=== PATIENT | male | born 1975 | race Hispanic/Latino ===

== ENCOUNTER 2019-01-03 15:33 | Inpatient (IN) | payer BC ==
[2019-01-03] MEDS ORDERED: Sodium Chloride 0.9% 1,000 ML IV STA (15:55)
--- NOTE | 2019-01-03 16:02 | ED PDOC ---
HPI: SOB/CHF/COPD Time Seen by Provider: 01/03/19 15:51 Chief Complaint (Nursing): Dizziness/Lightheaded Chief Complaint (Provider): SOB on exertion, Lightheaded, Weakness History Per: Patient History/Exam Limitations: no limitations Onset/Duration Of Symptoms: Days (3-4) Current Symptoms Are (Timing): Still Present Additional Complaint(s): 43 year old male presents to the ED for evaluation of shortness of breath on exertion for the past 3-4 days associated with light headedness, dizziness, and generalized weakness. Patient states that today, his colleague mentioned to him that he looks paler than usual, prompting his visit. He additionally notes that a couple days ago he noticed a little blood in his stool. Otherwise, denies chest pain, abdominal pain, nausea, vomiting, diarrhea, urinary symptoms, hematuria, leg pain, and recent long distance travel. 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 note) Past Medical History Reviewed: Historical Data, Nursing Documentation, Vital Signs Vital Signs: Last Vital Signs Temp 98.5 F 01/03/19 15:42 Pulse 115 H 01/03/19 15:42 Resp 19 01/03/19 15:42 BP Pulse Ox 100 01/03/19 15:42 - Medical History PMH: No Chronic Diseases - Surgical History Surgical History: No Surg Hx - Family History Family History: States: Unknown Family Hx - Social History Current smoker - smoking cessation education provided: No Alcohol: None Drugs: Denies - Home Medications Home Medications: Ambulatory Orders Medication Instructions Recorded No Known Home Med 01/03/19 - Allergies Allergies/Adverse Reactions: Allergies Allergy/AdvReac Type Severity Reaction Status Date / Time Penicillins AdvReac RASH Verified 01/03/19 15:40 Review of Systems ROS Statement: Except As Marked, All Systems Reviewed And Found Negative Constitutional: Positive for: Weakness (generalized) Cardiovascular: Positive for: Light Headedness. Negative for: Chest Pain Respiratory: Positive for: SOB with Exertion Gastrointestinal: Negative for: Nausea, Vomiting, Abdominal Pain, Diarrhea Genitourinary Male: Negative for: Dysuria, Frequency, Incontinence, Hematuria Musculoskeletal: Negative for: Leg Pain Skin: Positive for: Other (more pale than usual) Neurological: Positive for: Dizziness Physical Exam - Reviewed Nursing Documentation Reviewed: Yes Vital Signs Reviewed: Yes - Physical Exam Appears: Positive for: No Acute Distress Head Exam: Positive for: ATRAUMATIC, NORMAL INSPECTION, NORMOCEPHALIC Skin: Positive for: Warm, Dry, Pallor Eye Exam: Positive for: Normal appearance, EOMI, PERRL ENT: Positive for: Normal ENT Inspection Neck: Positive for: Normal, Painless ROM, Supple Cardiovascular/Chest: Positive for: Regular Rate, Rhythm Respiratory: Positive for: Normal Breath Sounds. Negative for: Respiratory Distress Gastrointestinal/Abdominal: Positive for: Normal Exam, Soft. Negative for: Tenderness Back: Positive for: Normal Inspection Rectal: Positive for: Rectal Tone Is: (normal, intact), Black Stool. Negative for: Other (gross blood) Extremity: Positive for: Normal ROM (all extremities). 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 Negative for: Motor/Sensory Deficits, Facial Droop Comments: Rectal exam attempted with SHEKHAR Cohen - Laboratory Results Result Diagrams: 01/03/19 15:58 01/03/19 15:58 Lab Results: 5.8hg - ECG ECG: Positive for: Interpreted By Me, Viewed By Me ECG Rhythm: Positive for: Normal QRS, Normal ST Segment, Sinus Rhythm O2 Sat by Pulse Oximetry: 100 (RA) Pulse Ox Interpretation: Normal - Progress ED Course And Treament: 1545: Stable. Continue fluids. Pending blood work. 1623: Stable. AAOx3. Pain free. Spoke with Dr. Loja. Will admit. - Critical Care Total Time (In Min): 30 Documented Critical Care: Time excludes all time spent performint seperately billable procedures Medical Decision Making Medical Decision Making: Time: 1557 Initial Impression: weakness, shortness of breath, pallor Initial Plan: --Abo/Rho --Type and screen --CT head without contrast --EKG --CMP --Trop I --CBC with differential --PT / PTT --Normal saline IV --Protonix 40mg IVP --Occult blood, stool --Reevaluation Scribe Attestation: Documented by Alexandrea Mireles, acting as a scribe for Parviz Elias MD. Provider Scribe Attestation: All medical record entries made by the Scribe were at my direction and personally dictated by me. I have reviewed the chart and agree that the record accurately reflects my personal performance of the history, physical exam, medical decision making, and the department course for this patient. I have also personally directed, reviewed, and agree with the discharge instructions and disposition. Disposition - Clinical Impression Clinical Impression: Anemia - Patient ED Disposition Is Patient to be Admitted: Yes Counseled Patient/Family Regarding: Studies Performed, Diagnosis - Disposition Disposition Time: 16:25 Condition: FAIR - Pt Status Changed To: Hospital Disposition Of: Inpatient - Admit Certification Admit to Inpatient:: After my assessment, the patient will require hospitalization for at least two midnights. This is because of the severity of symptoms shown, intensity of services needed, and/or the medical risk in this patient being treated as an outpatient. - POA Present On Arrival: None
[2019-01-03 16:05] LABS: BASO % 0.6 % (0.0-2.0); EOS # 0.1 K/uL (0.0-0.7); EOS % 1.2 % (0.0-4.0); LYMPH # 0.9 K/uL (1.0-4.3); LYMPH % 17.3 % (20.0-40.0); MEAN CELL VOLUME 85.7 fl (80.0-94.0); MEAN CORPUSCULAR HEMOGLOBIN 28.9 pg (27.0-31.0); MEAN CORPUSCULAR HGB CONC 33.7 g/dL (33.0-37.0); MEAN PLATELET VOLUME 7.5 fl (7.2-11.7); MONO # 0.3 K/uL (0.0-0.8); NEUT % 75.9 % (50.0-75.0); NRBC % 0.2 % (0.0-0.0); RBC 2.01 Mil/uL (4.40-5.90); RED CELL DISTRIBUTION WIDTH 13.6 % (11.5-14.5); WHITE BLOOD COUNT 5.3 K/uL (4.8-10.8)
[2019-01-03 16:11] LABS: PROTHROMBIN TIME 10.8 Seconds (9.8-13.1)
[2019-01-03 16:12] LABS: HEMOGLOBIN 5.8 g/dL (12.0-18.0)
[2019-01-03 16:13] LABS: PARTIAL THROMBOPLASTIN TIME 27.8 Seconds (25.6-37.1)
[2019-01-03 16:17] LABS: ALB/GLOB RATIO 1.3 (1.0-2.1); ALBUMIN 3.8 g/dL (3.5-5.0); ALT/SGPT 29 U/L (21-72); AST/SGOT 31 U/L (17-59); BLOOD UREA NITROGEN 22 mg/dl (9-20); CALCIUM 8.7 mg/dL (8.4-10.2); GFR NON-AFRICAN AMERICAN > 60
[2019-01-03] MEDS ORDERED: Pantoprazole 40 MG in Sodium Chloride 0.9% 100 ML IVPB SCH (16:30)
--- NOTE | 2019-01-03 17:00 | CP.PCM.HP ---
<Shila Sauceda - Last Filed: 01/03/19 17:12> History of Present Illness - History of Present Illness History of Present Illness: 43-year-old male with no PMH presented to [facility] ED for weakness, headache, dizziness and shortness of breath for 3 days duration. He has recently noticed very black stools but denies joshua blood. Colleagues had commented on his pallor skin but he has not noticed any change. Denies syncope, vomiting, medication and alcohol use, dysuria, hematuria, nausea, change in vision, chest pain, new-onset edema, change in weight, easy bleeding, and recent illness and travel. 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 absent: Weight Loss - EENT Eyes: absent: Change in Vision - Cardiovascular Cardiovascular: absent: Chest Pain - Respiratory Respiratory: As Per HPI - Gastrointestinal Gastrointestinal: As Per HPI - Genitourinary Genitourinary: absent: Dysuria, Hematuria - Neurological Neurological: absent: Syncope - Hematologic/Lymphatic Hematologic: absent: Easy Bleeding, Easy Bruising Past Patient History - Infectious Disease Hx of Infectious Diseases: None - Past Social History Alcohol: None Drugs: Denies - PSYCHIATRIC Hx Substance Use: No Meds Allergies/Adverse Reactions: Allergies Allergy/AdvReac Type Severity Reaction Status Date / Time Penicillins AdvReac RASH Verified 01/03/19 15:40 Physical Exam - Constitutional Appears: Non-toxic, No Acute Distress - Head Exam Head Exam: NORMAL INSPECTION - ENT Exam ENT Exam: Mucous Membranes Dry - Respiratory Exam Respiratory Exam: Clear to Auscultation Bilateral, NORMAL BREATHING PATTERN. absent: Chest Wall Tenderness, Respiratory Distress - Cardiovascular Exam Cardiovascular Exam: Tachycardia (HR 115) - GI/Abdominal Exam GI & Abdominal Exam: Normal Bowel Sounds, Soft. absent: Distended, Guarding, Tenderness - Extremities Exam Extremities exam: Negative for: pedal edema - Neurological Exam Neurological exam: Alert, Normal Gait, Oriented x3 - Psychiatric Exam Psychiatric exam: Normal Affect, Normal Mood - Skin Skin Exam: Dry, Pallor, Warm Results - Vital Signs Recent Vital Signs: Last Vital Signs Temp 98.5 F 01/03/19 15:42 Pulse 115 H 01/03/19 15:42 Resp 19 01/03/19 15:42 BP Pulse Ox 100 01/03/19 16:28 - Labs Result Diagrams: 01/03/19 15:58 01/03/19 15:58 Labs: Laboratory Results - last 24 hr 01/03/19 01/03/19 01/03/19 15:58 15:58 15:58 WBC 5.3 RBC 2.01 L Hgb 5.8 L* Hct 17.3 L MCV 85.7 MCH 28.9 MCHC 33.7 RDW 13.6 Plt Count 207 MPV 7.5 Neut % (Auto) 75.9 H Lymph % (Auto) 17.3 L Sargent % (Auto) 5.0 Eos % (Auto) 1.2 Baso % (Auto) 0.6 Neut # (Auto) 4.0 Lymph # (Auto) 0.9 L Sargent # (Auto) 0.3 Eos # (Auto) 0.1 Baso # (Auto) 0.0 PT 10.8 INR 1.0 APTT 27.8 Sodium 137 Potassium 4.1 Chloride 102 Carbon Dioxide 26 Anion Gap 13 BUN 22 H Creatinine 1.2 Est GFR ( Amer) > 60 Est GFR (Non-Af Amer) > 60 Random Glucose 108 Calcium 8.7 Total Bilirubin 0.6 AST 31 ALT 29 Alkaline Phosphatase 54 Troponin I < 0.0120 Total Protein 6.7 Albumin 3.8 Globulin 2.9 Albumin/Globulin Ratio 1.3 Stool Occult Blood 01/03/19 16:00 WBC RBC Hgb Hct MCV MCH MCHC RDW Plt Count MPV Neut % (Auto) Lymph % (Auto) Sargent % (Auto) Eos % (Auto) Baso % (Auto) Neut # (Auto) Lymph # (Auto) Sargent # (Auto) Eos # (Auto) Baso # (Auto) PT INR APTT Sodium Potassium Chloride Carbon Dioxide Anion Gap BUN Creatinine Est GFR ( Amer) Est GFR (Non-Af Amer) Random Glucose Calcium Total Bilirubin AST ALT Alkaline Phosphatase Troponin I Total Protein Albumin Globulin Albumin/Globulin Ratio Stool Occult Blood Positive H Assessment & Plan - Assessment and Plan (Free Text) Assessment: 43-year-old male with no PMH presented to [facility] ED for weakness, headache, dizziness and shortness of breath for 3 days duration admitted for anemia (H/H 5 .8/17.3). Plan: Anemia due to acute blood loss -H/H 5.8/17.3 -2 PRBC ordered -Admit to tele -BP 108/76, HR 115, monitor vitals -Repeat CBC post-transfusion GI bleed -Stool occult pos in ED -GI consulted, input and recs appreciated -Protonix 40mg Q12 -s/p 1L NS bolus ED DVT Prophylaxis -SCD <Ernesto Loja D - Last Filed: 01/04/19 11:43> Results - Vital Signs Recent Vital Signs: Last Vital Signs Temp 98.3 F 01/04/19 08:01 Pulse 81 01/04/19 08:01 Resp 18 01/04/19 08:01 BP 107/67 01/04/19 08:01 Pulse Ox 100 01/04/19 08:01 - Labs Result Diagrams: 01/04/19 05:25 01/04/19 05:25 Labs: Laboratory Results - last 24 hr 01/03/19 01/03/19 01/03/19 15:58 15:58 15:58 WBC 5.3 RBC 2.01 L Hgb 5.8 L* Hct 17.3 L MCV 85.7 MCH 28.9 MCHC 33.7 RDW 13.6 Plt Count 207 MPV 7.5 Neut % (Auto) 75.9 H Lymph % (Auto) 17.3 L Sargent % (Auto) 5.0 Eos % (Auto) 1.2 Baso % (Auto) 0.6 Neut # (Auto) 4.0 Lymph # (Auto) 0.9 L Sargent # (Auto) 0.3 Eos # (Auto) 0.1 Baso # (Auto) 0.0 PT 10.8 INR 1.0 APTT 27.8 Sodium 137 Potassium 4.1 Chloride 102 Carbon Dioxide 26 Anion Gap 13 BUN 22 H Creatinine 1.2 Est GFR ( Amer) > 60 Est GFR (Non-Af Amer) > 60 Random Glucose 108 Calcium 8.7 Total Bilirubin 0.6 AST 31 ALT 29 Alkaline Phosphatase 54 Troponin I < 0.0120 Total Protein 6.7 Albumin 3.8 Globulin 2.9 Albumin/Globulin Ratio 1.3 Stool Occult Blood Blood Type Blood Type Confirm Antibody Screen Crossmatch BBK History Checked 01/03/19 01/03/19 01/03/19 16:00 16:45 17:24 WBC RBC Hgb Hct MCV MCH MCHC RDW Plt Count MPV Neut % (Auto) Lymph % (Auto) Sargent % (Auto) Eos % (Auto) Baso % (Auto) Neut # (Auto) Lymph # (Auto) Sargent # (Auto) Eos # (Auto) Baso # (Auto) PT INR APTT Sodium Potassium Chloride Carbon Dioxide Anion Gap BUN Creatinine Est GFR ( Amer) Est GFR (Non-Af Amer) Random Glucose Calcium Total Bilirubin AST ALT Alkaline Phosphatase Troponin I Total Protein Albumin Globulin Albumin/Globulin Ratio Stool Occult Blood Positive H Blood Type O POSITIVE Blood Type Confirm O POSITIVE Antibody Screen Negative Crossmatch See Detail BBK History Checked No verified bt 01/04/19 01/04/19 05:25 05:25 WBC 4.4 L RBC 2.26 L Hgb 6.5 L* Hct 19.2 L MCV 85.3 MCH 28.7 MCHC 33.7 RDW 13.9 Plt Count 164 MPV 7.8 Neut % (Auto) 42.9 L Lymph % (Auto) 45.5 H Sargent % (Auto) 6.2 Eos % (Auto) 4.9 H Baso % (Auto) 0.5 Neut # (Auto) 1.9 Lymph # (Auto) 2.0 Sargent # (Auto) 0.3 Eos # (Auto) 0.2 Baso # (Auto) 0.0 PT INR APTT Sodium 139 Potassium 4.7 Chloride 107 Carbon Dioxide 28 Anion Gap 9 L BUN 16 Creatinine 1.1 Est GFR ( Amer) > 60 Est GFR (Non-Af Amer) > 60 Random Glucose 89 Calcium 8.6 Total Bilirubin AST ALT Alkaline Phosphatase Troponin I Total Protein Albumin Globulin Albumin/Globulin Ratio Stool Occult Blood Blood Type Blood Type Confirm Antibody Screen Crossmatch BBK History Checked Attending/Attestation - Attestation I have personally seen and examined this patient.: Yes I have fully participated in the care of the patient.: Yes I have reviewed all pertinent clinical information: Yes Notes (Text): 01/04/19 11:42 Patient seen and examined with resident. Case discussed and agreed with assessment and plan of management
[2019-01-03] MEDS: Pantoprazole 40 MG in Sodium Chloride 0.9% 100 ML IVPB SCH (21:40)
[2019-01-04] MEDS ORDERED: Influenza Vaccine 60 mcg/0.5 mL SYR (4YR UP) IM ONE (06:00)
[2019-01-04 06:05] LABS: BASO % 0.5 % (0.0-2.0); EOS # 0.2 K/uL (0.0-0.7); EOS % 4.9 % (0.0-4.0); LYMPH % 45.5 % (20.0-40.0); MEAN CELL VOLUME 85.3 fl (80.0-94.0); MEAN CORPUSCULAR HEMOGLOBIN 28.7 pg (27.0-31.0); MEAN CORPUSCULAR HGB CONC 33.7 g/dL (33.0-37.0); MEAN PLATELET VOLUME 7.8 fl (7.2-11.7); MONO # 0.3 K/uL (0.0-0.8); MONO % 6.2 % (0.0-10.0); NEUT # 1.9 K/uL (1.8-7.0); NEUT % 42.9 % (50.0-75.0); NRBC % 0.1 % (0.0-0.0); RBC 2.26 Mil/uL (4.40-5.90); RED CELL DISTRIBUTION WIDTH 13.9 % (11.5-14.5); WHITE BLOOD COUNT 4.4 K/uL (4.8-10.8)
[2019-01-04 06:22] LABS: BLOOD UREA NITROGEN 16 mg/dl (9-20); CALCIUM 8.6 mg/dL (8.4-10.2); GFR NON-AFRICAN AMERICAN > 60
[2019-01-04 06:48] LABS: HEMOGLOBIN 6.5 g/dL (12.0-18.0)
--- NOTE | 2019-01-04 09:18 | CARD ---
APPROVED REPORT Date of service: 01/03/2019 EKG Measurement Heart [id number] <Conclusion> Normal sinus rhythm Normal ECG
[2019-01-04] MEDS: Pantoprazole 40 MG in Sodium Chloride 0.9% 100 ML IVPB SCH ×2 (11:37→21:45)
--- NOTE | 2019-01-04 12:13 | CP.PCM.PN ---
<Shila Sauceda - Last Filed: 01/04/19 12:23> Subjective - Date & Time of Evaluation Date of Evaluation: 01/04/19 Time of Evaluation: 12:13 - Subjective Subjective: Patient seen and examined bedside. No acute events overnight and no new complaints besides a minor headache and hunger - has not ambulated much so unable to assess if his SOB has improved. Denies syncope, change in vision, palpitations, hematuria, nausea and vomiting. Objective - Vital Signs/Intake and Output Vital Signs (last 24 hours): Temp Pulse Resp BP Pulse Ox 98.1 F 75 18 111/70 96 01/04/19 12:03 01/04/19 12:03 01/04/19 12:03 01/04/19 12:03 01/04/19 12:03 Intake and Output: 01/04/19 01/04/19 06:59 18:59 Intake Total 652 Balance 652 - Medications Medications: Current Medications Pantoprazole Sodium 40 mg/ (Sodium Chloride) 100 mls @ 20 mls/hr IVPB Q12 ASHTYN Last Admin: 01/04/19 11:37 Dose: 20 mls/hr Iron Sucrose 100 mg/ Sodium (Chloride) 105 mls @ 105 mls/hr IVPB DAILY ASHTYN Last Admin: 01/04/19 10:57 Dose: 105 mls/hr - Labs Labs: 01/04/19 05:25 01/04/19 05:25 PT 10.8 Seconds (9.8-13.1) 01/03/19 15:58 INR 1.0 01/03/19 15:58 APTT 27.8 Seconds (25.6-37.1) 01/03/19 15:58 - Constitutional Appears: Non-toxic, No Acute Distress - Head Exam Head Exam: NORMAL INSPECTION - ENT Exam ENT Exam: Mucous Membranes Dry - Respiratory Exam Respiratory Exam: NORMAL BREATHING PATTERN - Cardiovascular Exam Cardiovascular Exam: REGULAR RHYTHM, +S1, +S2 - GI/Abdominal Exam GI & Abdominal Exam: Soft. absent: Tenderness - Neurological Exam Neurological Exam: Alert, Awake, Oriented x3 - Skin Skin Exam: Pallor Assessment and Plan - Assessment and Plan (Free Text) Assessment: 43-year-old male with no PMH presented to [facility] ED for weakness, headache, dizzin ess and shortness of breath for 3 days duration admitted for anemia (H/H 5.8/17.3 on admission). Plan: Anemia due to acute blood loss -Vitally stable -6.5/19.2 s/p 2 PRBC (Admission H/H 5.8/17.3) -1 PRBC transfusion today -Venofer 100mg daily -Repeat CBC post-transfusion GI bleed -Stool occult pos in ED -GI consulted, input and recs appreciated - plan for scope today as per Dr Meyer -Protonix 40mg Q12 -IVF: NS DVT Prophylaxis -SCD <Ernesto Loja D - Last Filed: 01/04/19 15:57> Objective - Vital Signs/Intake and Output Vital Signs (last 24 hours): Temp Pulse Resp BP Pulse Ox 98.6 F 72 18 100/57 L 96 01/04/19 13:58 01/04/19 13:58 01/04/19 13:58 01/04/19 13:58 01/04/19 12:03 Intake and Output: 01/04/19 01/04/19 06:59 18:59 Intake Total 652 0 Balance 652 0 - Medications Medications: Current Medications Pantoprazole Sodium 40 mg/ (Sodium Chloride) 100 mls @ 20 mls/hr IVPB Q12 ASHTYN Last Admin: 01/04/19 11:37 Dose: 20 mls/hr Iron Sucrose 100 mg/ Sodium (Chloride) 105 mls @ 105 mls/hr IVPB DAILY [facility] Last Admin: 01/04/19 10:57 Dose: 105 mls/hr - Labs Labs: 01/04/19 05:25 01/04/19 05:25 PT 10.8 Seconds (9.8-13.1) 01/03/19 15:58 INR 1.0 01/03/19 15:58 APTT 27.8 Seconds (25.6-37.1) 01/03/19 15:58 Attending/Attestation - Attestation I have personally seen and examined this patient.: Yes I have fully participated in the care of the patient.: Yes I have reviewed all pertinent clinical information, including history, physical exam and plan: Yes Notes (Text): 01/04/19 15:45 Patient seen and examined with resident. Case discussed and agreed with assessment and plan. Waiting for endoscopy/colonoscopy today to rule out presence of GI bleed.
[2019-01-05 05:25] LABS: MEAN CELL VOLUME 85.3 fl (80.0-94.0); MEAN CORPUSCULAR HEMOGLOBIN 28.8 pg (27.0-31.0); MEAN CORPUSCULAR HGB CONC 33.8 g/dL (33.0-37.0); RBC 3.14 Mil/uL (4.40-5.90); RED CELL DISTRIBUTION WIDTH 13.7 % (11.5-14.5); WHITE BLOOD COUNT 4.9 K/uL (4.8-10.8)
[2019-01-05 05:41] LABS: ALB/GLOB RATIO 1.3 (1.0-2.1); ALBUMIN 3.5 g/dL (3.5-5.0); ALT/SGPT 24 U/L (21-72); AST/SGOT 32 U/L (17-59); BLOOD UREA NITROGEN 13 mg/dl (9-20); CALCIUM 8.9 mg/dL (8.4-10.2); GFR NON-AFRICAN AMERICAN > 60
[2019-01-05 05:53] LABS: HEMOGLOBIN 9.1 g/dL (12.0-18.0)
[2019-01-05] MEDS ORDERED: Lactated Ringer's 500 ML IV ONE (08:02)
[2019-01-05] MEDS ORDERED: Propofol 10 mg/ml Inj (20 ML) ONE (08:13)
[2019-01-05] MEDS: Pantoprazole 40 MG in Sodium Chloride 0.9% 100 ML IVPB SCH (12:22)
[2019-01-05 12:27] VITALS: BP 114/72; PULSE 85; RESP 20; TEMP 97.7; O2SAT 97
--- NOTE | 2019-01-05 12:32 | CP.PCM.DIS ---
<Shila Sauceda - Last Filed: 01/05/19 12:38> Provider - Provider Date of Admission: 01/03/19 16:21 Attending physician: Ernesto Loja MD Consults: 01/03/19 16:57 Gastroenterology Consult Stat Comment: Consulting Provider: Gabriel Meyer Consulting Physician: Gabriel Meyer Reason for Consult: severe anemia with black stools Time Spent in preparation of Discharge (in minutes): 20 Diagnosis - Discharge Diagnosis (1) GI bleed Status: Acute (2) Anemia Status: Acute Hospital Course - Lab Results Lab Results: Most Recent Lab Values WBC 4.9 K/uL (4.8-10.8) 01/05/19 04:20 RBC 3.14 Mil/uL (4.40-5.90) L 01/05/19 04:20 Hgb 9.1 g/dL (12.0-18.0) L D 01/05/19 04:20 Hct 26.8 % (35.0-51.0) L 01/05/19 04:20 MCV 85.3 fl (80.0-94.0) 01/05/19 04:20 MCH 28.8 pg (27.0-31.0) 01/05/19 04:20 MCHC 33.8 g/dL (33.0-37.0) 01/05/19 04:20 RDW 13.7 % (11.5-14.5) 01/05/19 04:20 Plt Count 176 K/uL (130-400) 01/05/19 04:20 MPV 7.8 fl (7.2-11.7) 01/04/19 05:25 Neut % (Auto) 42.9 % (50.0-75.0) L 01/04/19 05:25 Lymph % (Auto) 45.5 % (20.0-40.0) H 01/04/19 05:25 Bledsoe % (Auto) 6.2 % (0.0-10.0) 01/04/19 05:25 Eos % (Auto) 4.9 % (0.0-4.0) H 01/04/19 05:25 Baso % (Auto) 0.5 % (0.0-2.0) 01/04/19 05:25 Neut # (Auto) 1.9 K/uL (1.8-7.0) 01/04/19 05:25 Lymph # (Auto) 2.0 K/uL (1.0-4.3) 01/04/19 05:25 Bledsoe # (Auto) 0.3 K/uL (0.0-0.8) 01/04/19 05:25 Eos # (Auto) 0.2 K/uL (0.0-0.7) 01/04/19 05:25 Baso # (Auto) 0.0 K/uL (0.0-0.2) 01/04/19 05:25 PT 10.8 Seconds (9.8-13.1) 01/03/19 15:58 INR 1.0 01/03/19 15:58 APTT 27.8 Seconds (25.6-37.1) 01/03/19 15:58 Sodium 139 mmol/l (132-148) 01/05/19 04:20 Potassium 3.9 MMOL/L (3.6-5.0) 01/05/19 04:20 Chloride 105 mmol/L (98-107) 01/05/19 04:20 Carbon Dioxide 27 mmol/L (22-30) 01/05/19 04:20 Anion Gap 11 (10-20) 01/05/19 04:20 BUN 13 mg/dl (9-20) 01/05/19 04:20 Creatinine 1.0 mg/dl (0.8-1.5) 01/05/19 04:20 Est GFR ( Amer) > 60 01/05/19 04:20 Est GFR (Non-Af Amer) > 60 01/05/19 04:20 Random Glucose 86 mg/dL (75-110) 01/05/19 04:20 Calcium 8.9 mg/dL (8.4-10.2) 01/05/19 04:20 Total Bilirubin 1.4 mg/dl (0.2-1.3) H 01/05/19 04:20 AST 32 U/L (17-59) 01/05/19 04:20 ALT 24 U/L (21-72) 01/05/19 04:20 Alkaline Phosphatase 53 U/L (38-126) 01/05/19 04:20 Troponin I < 0.0120 ng/mL (0.00-0.120) 01/03/19 15:58 Total Protein 6.2 G/DL (6.3-8.2) L 01/05/19 04:20 Albumin 3.5 g/dL (3.5-5.0) 01/05/19 04:20 Globulin 2.7 gm/dL (2.2-3.9) 01/05/19 04:20 Albumin/Globulin Ratio 1.3 (1.0-2.1) 01/05/19 04:20 Stool Occult Blood Positive (NEGATIVE) H 01/03/19 16:00 Blood Type O POSITIVE 01/03/19 16:45 Blood Type Confirm O POSITIVE 01/03/19 17:24 Antibody Screen Negative 01/03/19 16:45 Crossmatch See Detail 01/03/19 16:45 BBK History Checked No verified bt 01/03/19 16:45 - Hospital Course Hospital Course: 43-year-old male with no PMH presented to [facility] ED for weakness, headache, dizziness and shortness of breath for 3 days duration admitted for anemia (H/H 5.8/17.3 on admission). Stool occult positive in ED. Venofer 100mg and Protonix 40mg Q12 daily given, s/p 4 units PRBC. Hg/Hct on discharge 9.1/26.8. GI consulted (Dr Cyr), EGD (01/05): 1. Z-line was irregular, biopsy taken. 2. diffuse moderately erythematous mucosa without bleeding found in stomch, biopsy taken. 3. One non-bleeding cratered duodenal ulcer with no stigmata of bleeding was found in second portion of duodenum. Lesion was 10mm in largest dimension. Biopsies taken. Pt tolerated endoscopy well, medically stable and cleared for discharge to home. Follow up GI in 2 weeks and PMD within 1 week. Discharge Exam - Head Exam Head Exam: NORMAL INSPECTION - Eye Exam Eye Exam: Normal appearance - Respiratory Exam Respiratory Exam: Clear to PA & Lateral, NORMAL BREATHING PATTERN, UNREMARKABLE. absent: Respiratory Distress - Cardiovascular Exam Cardiovascular Exam: REGULAR RHYTHM - GI/Abdominal Exam GI & Abdominal Exam: Soft. absent: Tenderness - Back Exam Back exam: NORMAL INSPECTION - Neurological Exam Neurological exam: Alert, Normal Gait, Oriented x3 - Psychiatric Exam Psychiatric exam: Normal Affect, Normal Mood - Skin Skin Exam: Dry, Intact, Normal Color, Warm Discharge Plan - Discharge Medications Prescriptions: Ascorbic Acid/Ferrous Sulfate [Iberet-Folic 500] 1 ter PO DAILY #30 ter Pantoprazole Sodium [Protonix] 40 mg PO DAILY #30 tablet. - Follow Up Plan Condition: FAIR Disposition: HOME/ ROUTINE Instructions: Gastrointestinal Bleeding (DC) Additional Instructions: Follow up PMD within [address] Cyr in 2 weeks. Referrals: Gabriel Meyer MD, PhD [Staff Provider] - <Ernesto Loja - Last Filed: 01/05/19 13:58> Provider - Provider Date of Admission: 01/03/19 16:21 Attending physician: Ernesto Loja MD Consults: 01/03/19 16:57 Gastroenterology Consult Stat Comment: Consulting Provider: Gabriel Meyer Consulting Physician: Gabriel Meyer Reason for Consult: severe anemia with black stools Hospital Course - Lab Results Lab Results: Most Recent Lab Values WBC 4.9 K/uL (4.8-10.8) 01/05/19 04:20 RBC 3.14 Mil/uL (4.40-5.90) L 01/05/19 04:20 Hgb 9.1 g/dL (12.0-18.0) L D 01/05/19 04:20 Hct 26.8 % (35.0-51.0) L 01/05/19 04:20 MCV 85.3 fl (80.0-94.0) 01/05/19 04:20 MCH 28.8 pg (27.0-31.0) 01/05/19 04:20 MCHC 33.8 g/dL (33.0-37.0) 01/05/19 04:20 RDW 13.7 % (11.5-14.5) 01/05/19 04:20 Plt Count 176 K/uL (130-400) 01/05/19 04:20 MPV 7.8 fl (7.2-11.7) 01/04/19 05:25 Neut % (Auto) 42.9 % (50.0-75.0) L 01/04/19 05:25 Lymph % (Auto) 45.5 % (20.0-40.0) H 01/04/19 05:25 Bledsoe % (Auto) 6.2 % (0.0-10.0) 01/04/19 05:25 Eos % (Auto) 4.9 % (0.0-4.0) H 01/04/19 05:25 Baso % (Auto) 0.5 % (0.0-2.0) 01/04/19 05:25 Neut # (Auto) 1.9 K/uL (1.8-7.0) 01/04/19 05:25 Lymph # (Auto) 2.0 K/uL (1.0-4.3) 01/04/19 05:25 Bledsoe # (Auto) 0.3 K/uL (0.0-0.8) 01/04/19 05:25 Eos # (Auto) 0.2 K/uL (0.0-0.7) 01/04/19 05:25 Baso # (Auto) 0.0 K/uL (0.0-0.2) 01/04/19 05:25 PT 10.8 Seconds (9.8-13.1) 01/03/19 15:58 INR 1.0 01/03/19 15:58 APTT 27.8 Seconds (25.6-37.1) 01/03/19 15:58 Sodium 139 mmol/l (132-148) 01/05/19 04:20 Potassium 3.9 MMOL/L (3.6-5.0) 01/05/19 04:20 Chloride 105 mmol/L (98-107) 01/05/19 04:20 Carbon Dioxide 27 mmol/L (22-30) 01/05/19 04:20 Anion Gap 11 (10-20) 01/05/19 04:20 BUN 13 mg/dl (9-20) 01/05/19 04:20 Creatinine 1.0 mg/dl (0.8-1.5) 01/05/19 04:20 Est GFR ( Amer) > 60 01/05/19 04:20 Est GFR (Non-Af Amer) > 60 01/05/19 04:20 Random Glucose 86 mg/dL (75-110) 01/05/19 04:20 Calcium 8.9 mg/dL (8.4-10.2) 01/05/19 04:20 Total Bilirubin 1.4 mg/dl (0.2-1.3) H 01/05/19 04:20 AST 32 U/L (17-59) 01/05/19 04:20 ALT 24 U/L (21-72) 01/05/19 04:20 Alkaline Phosphatase 53 U/L (38-126) 01/05/19 04:20 Troponin I < 0.0120 ng/mL (0.00-0.120) 01/03/19 15:58 Total Protein 6.2 G/DL (6.3-8.2) L 01/05/19 04:20 Albumin 3.5 g/dL (3.5-5.0) 01/05/19 04:20 Globulin 2.7 gm/dL (2.2-3.9) 01/05/19 04:20 Albumin/Globulin Ratio 1.3 (1.0-2.1) 01/05/19 04:20 Stool Occult Blood Positive (NEGATIVE) H 01/03/19 16:00 Blood Type O POSITIVE 01/03/19 16:45 Blood Type Confirm O POSITIVE 01/03/19 17:24 Antibody Screen Negative 01/03/19 16:45 Crossmatch See Detail 01/03/19 16:45 BBK History Checked No verified bt 01/03/19 16:45 Attending/Attestation - Attestation I have personally seen and examined this patient.: Yes I have fully participated in the care of the patient.: Yes I have reviewed all pertinent clinical information, including history, physical exam and plan: Yes Notes (Text): 01/05/19 13:57 Patient seen and examined with resident. Case discussed and agreed with assess ment and plan. Endoscopy showed non-bleeding duodenal ulcer
--- NOTE | 2019-01-06 14:48 | PQF ---
PROVIDER RESPONSE TEXT: Although the doudenal ulcer was not actively bleeding, it still could be the source since the stool g uiac was positive REVIEWER QUERY TEXT: Documentation Clarification Your help is requested in clarifying the following clinical documentation, if you can please further specify in the medical record and discharge summary. Admitted with anemia. EGD: Erythematous mucosa in the stomach without bleeding . One non bleeding duo denal ulcer with no stigmata of bleeding. Biopsied. Please clarify the possible etiology of GI Bleed. The patient's Clinical Indicators include: Presented to [facility] ED for weakness, headache, dizziness and shortness of breath for 3 days duration. H e has recently noticed very black stools but denies joshua blood. Rx: PRBC, Venofer, Protonix Query created by: Khadra Leach on 01/05/2019 12:55 PM Electronically signed by: Ernesto Loja MD 01/06/2019 2:45 PM
--- NOTE | 2019-01-07 21:40 | CON ---
DATE: 01/04/2019 REFERRING DOCTOR: Ernesto Loja MD REASON FOR CONSULTATION: Melena. HISTORY OF PRESENT ILLNESS: This is a pleasant 43-year-old male with no additional past medical history, essentially brought in for weakness and anemia from recent blood draws, had an episode of melena, otherwise no complaints, no nausea, no vomiting, no heartburn, no reflux. Currently lying in bed comfortable, in no apparent distress. PAST MEDICAL HISTORY: As above. PAST SURGICAL HISTORY: As above. MEDICATIONS: Reviewed. REVIEW OF SYSTEMS: All other systems have been reviewed and negative apart from the HPI. PHYSICAL EXAMINATION: GENERAL: This is a well-nourished pleasant middle-aged male, lying in bed comfortable, in no apparent distress. VITAL SIGNS: Here in the hospital are grossly unremarkable. HEENT: Head: Normocephalic, atraumatic. Eyes: Pupils are equally reactive to light bilaterally. No conjunctival pallor or icterus. NECK: Supple. Normal range of motion. No lymphadenopathy appreciated. LUNGS: Coarse breath sounds bilaterally. HEART: S1 and S2, regular rate and rhythm. No murmurs appreciated. ABDOMEN: Soft, nontender. Bowel sounds present. No rebound. No guarding. RECTAL: Deferred. EXTREMITIES: Pulses felt bilaterally. SKIN: Warm, dry, and intact. NEUROLOGICAL: A and O x3. LABORATORY DATA: Labs and radiology have been reviewed. WBC is 5.3 on admission, hemoglobin of 5.8, hematocrit 17. ASSESSMENT AND PLAN: This is a 43-year-old male with melena and anemia. Plan for endoscopy, Proton pump inhibitor twice a day for now. Thank you for the consult. Gabriel Meyer MD/ PhD cc: Ernesto Loja MD
== END 2019-01-05 12:30 | disposition home or self-care (01) | DRG 378 ==
LOC: H.ER 15:33 → H.ERHOLD 16:21 → H.TEL 20:39
PROC: 30233N1 Transfusion of Nonautologous Red Blood Cells into Peripheral Vein, Percutaneous Approach (ICD-10-PCS; principal; 2019-01-03)
PROC: 3E02340 Introduction of Influenza Vaccine into Muscle, Percutaneous Approach (ICD-10-PCS; 2019-01-04)
PROC: 0DB58ZX Excision of Esophagus, Via Natural or Artificial Opening Endoscopic, Diagnostic (ICD-10-PCS; 2019-01-05)
PROC: 0DB98ZX Excision of Duodenum, Via Natural or Artificial Opening Endoscopic, Diagnostic (ICD-10-PCS; 2019-01-05)
PROC: 0DB68ZX Excision of Stomach, Via Natural or Artificial Opening Endoscopic, Diagnostic (ICD-10-PCS; 2019-01-05)
DX: K26.4 Chronic or unspecified duodenal ulcer with hemorrhage (principal); D62 Acute posthemorrhagic anemia; K31.89 Other diseases of stomach and duodenum; K22.8 Other specified diseases of esophagus; Z88.0 Allergy status to penicillin; Z23 Encounter for immunization